=== PATIENT | female | born 1960 | race Caucasian/White ===

== ENCOUNTER → 2018-05-10 | Outpatient (REF) | payer OTHER ==
[2018-05-10 19:32] LABS: BASO # 0.1 10^3/uL (0.0-0.2); BASO % 0.9 % (0.0-1.0); EOS # 0.2 10^3/uL (0.0-0.50); EOS % 2.8 % (0.0-3.0); HEMATOCRIT 39.9 % (36.0-47.0); HEMOGLOBIN 13.2 g/dl (12.0-15.5); IMMATURE GRANULOCYTE % 0.4 % (0-3.0); LYMPH # 2.2 10^3/uL (1.5-4.5); LYMPH % 39.4 % (24.0-44.0); MEAN CORPUSCULAR HEMOGLOBIN 33.7 pg (27.0-33.0); MEAN CORPUSCULAR HGB CONC 33.1 g/dl (32.0-36.5); MEAN CORPUSCULAR VOLUME 101.8 fl (80.0-96.0); MONO # 0.6 10^3/uL (0.0-0.8); MONO % 9.8 % (0.0-5.0); NEUTROPHILS # 2.6 10^3/uL (1.8-7.7); NEUTROPHILS % 46.7 % (36.0-66.0); PLATELET COUNT, AUTOMATED 185 10^3/uL (150-450); RED BLOOD COUNT 3.92 10^6/uL (4.00-5.40); RED CELL DISTRIBUTION WIDTH 12.5 % (11.5-14.5); WHITE BLOOD COUNT 5.6 10^3/uL (4.0-10.0)
[2018-05-15 00:07] LABS: D001-IgE D pteronyssinus 2.34 kU/L (Class III); E001-IgE Cat Epith/Dander > 100 kU/L (Class VI); G002-IgE Bermuda Grass 0.35 kU/L (Class I); G008-IgE Kentucky Bluegrass 0.46 kU/L (Class I); M002 IgE Cladosporium herbaru 1.55 kU/L (Class III); M003 IgE Aspergillus fumigatu 3.91 kU/L (Class IV); T007-IgE Oak, White 0.43 kU/L (Class I); T008-IgE Elm, American 0.43 kU/L (Class I); W001-IgE Ragweed, Short 3.27 kU/L (Class III)
== END ==
LOC: M LAB REF 17:02
DX: J45.20 Mild intermittent asthma, uncomplicated (principal)